=== PATIENT | female | born 1985 | race Caucasian/White ===

== ENCOUNTER 2018-12-02 20:17 | Emergency (ER) | payer OTHER ==
[~2018-12-02] VITALS: Ht 165.1 cm; Wt 53.5 kg
== END 2018-12-03 01:16 | disposition home or self-care (01) ==
LOC: ER 20:17
DX: O20.0 Threatened abortion (principal); O26.891 Other specified pregnancy related conditions, first trimester; R10.2 Pelvic and perineal pain; Z34.81 Encounter for supervision of other normal pregnancy, first trimester

== ENCOUNTER 2018-12-07 07:00 | Day surgery (SDC) | payer OTHER ==
[2018-12-07] MEDS ORDERED: DOXYCYCLINE HY100 MG PO (20:03)
== END 2018-12-07 11:00 | disposition home or self-care (01) ==
LOC: CIR.AMB 07:00
DX: O02.1 Missed abortion (principal); Z3A.10 10 weeks gestation of pregnancy

== ENCOUNTER 2019-10-30 09:09 | Emergency (ER) | payer OTHER ==
[~2019-10-30] VITALS: Ht 160 cm; Wt 54.4 kg
[~2019-10-30 09:09] MED LIST: DOXYCYCLINE HY100 MG PO
== END 2019-10-30 15:57 | disposition home or self-care (01) ==
LOC: ER 09:09
DX: O20.8 Other hemorrhage in early pregnancy (principal)

== ENCOUNTER → 2019-12-01 | Outpatient (CLI) | payer OTHER | END | disposition home or self-care (01) | LOC: PRENATAL 13:01 | DX: O26.851 Spotting complicating pregnancy, first trimester (principal); O36.80X0 Pregnancy with inconclusive fetal viability, not applicable or unspecified; O34.211 Maternal care for low transverse scar from previous cesarean delivery; O09.529 Supervision of elderly multigravida, unspecified trimester; O09.521 Supervision of elderly multigravida, first trimester ==

== ENCOUNTER → 2020-01-19 | Outpatient (CLI) | payer OTHER | END | disposition home or self-care (01) | LOC: PRENATAL 10:30 | DX: O35.3XX1 Maternal care for (suspected) damage to fetus from viral disease in mother, fetus 1 (principal); O34.11 Maternal care for benign tumor of corpus uteri, first trimester; O09.522 Supervision of elderly multigravida, second trimester ==

== ENCOUNTER 2020-04-12 18:53 | Inpatient (IN) | payer OTHER ==
[~2020-04-12] VITALS: Ht 160 cm; Wt 68.9 kg
[2020-04-13] MEDS ORDERED: PANTOPRAZOLE SO40 MG PO (08:09)
[2020-04-17] MEDS ORDERED: TAMS0.4C PO (13:26)
== END 2020-04-17 14:51 | disposition home or self-care (01) | DRG 832 ==
LOC: LDR 18:53 → OB/GYN 04-13 18:25
PROVIDERS: ADMIT Obstetrics & Gynecology; ATTEND Obstetrics & Gynecology
PROC: 4A1HXFZ Monitoring of Products of Conception, Cardiac Rhythm, External Approach (ICD-10-PCS; principal; 2020-04-12)
PROC: BT43ZZZ Ultrasonography of Bilateral Kidneys (ICD-10-PCS; 2020-04-16)
DX: O23.03 Infections of kidney in pregnancy, third trimester (principal); N13.6 Pyonephrosis; O99.113 Other diseases of the blood and blood-forming organs and certain disorders involving the immune mechanism complicating pregnancy, third trimester; D69.6 Thrombocytopenia, unspecified; Z3A.32 32 weeks gestation of pregnancy

== ENCOUNTER 2020-05-25 08:00 | Inpatient (IN) | payer OTHER ==
[~2020-05-25] VITALS: Ht 160 cm; Wt 3.2 kg
[~2020-05-25 08:00] MED LIST changes: +PANTOPRAZOLE SO40 MG PO; +TAMS0.4C PO
[2020-06-01] MEDS ORDERED: IRON325 MG PO (07:58)
[2020-06-01] MEDS ORDERED: PRENATAL CAPLE1 EAC1 PO (07:58)
[2020-06-04] MEDS ORDERED: CODE1TAB37 PO (13:00)
[2020-06-04] MEDS ORDERED: POLY119PG PO (13:01)
[2020-06-04] MEDS ORDERED: SIMETHICONE125 M1 PO (13:01)
== END 2020-06-04 15:39 | disposition home or self-care (01) | DRG 787 ==
LOC: O/R 06-01 06:54 → SURH 06-01 07:00 → O/R 06-01 08:00 → OB/GYN 06-01 10:25
PROVIDERS: ADMIT Obstetrics & Gynecology; ATTEND Obstetrics & Gynecology
PROC: 4A1HXFZ Monitoring of Products of Conception, Cardiac Rhythm, External Approach (ICD-10-PCS; 2020-06-01)
PROC: 3E033VJ Introduction of Other Hormone into Peripheral Vein, Percutaneous Approach (ICD-10-PCS; 2020-06-01)
PROC: 10D00Z1 Extraction of Products of Conception, Low, Open Approach (ICD-10-PCS; principal; 2020-06-01 07:00)
DX: O82 Encounter for cesarean delivery without indication (principal); O99.12 Other diseases of the blood and blood-forming organs and certain disorders involving the immune mechanism complicating childbirth; O34.211 Maternal care for low transverse scar from previous cesarean delivery; Z3A.39 39 weeks gestation of pregnancy; Z37.0 Single live birth; D69.6 Thrombocytopenia, unspecified